=== PATIENT | female | born 1945 | race Caucasian/White ===

== ENCOUNTER 2020-01-03 11:01 | Emergency (ER) | payer MEDICARE, SELFPAY ==
--- NOTE | ~2020-01-03 | XR_ITS ---
EXAMINATION: XR chest 2V DATE: 01/03/2020 12:03 INDICATION: Cough. TECHNIQUE: Frontal and lateral views of the chest were obtained. COMPARISON: None. FINDINGS: There is mild atelectasis in left lower lung zone. No pleural effusion or pneumothorax. The heart size is normal. IMPRESSION: 1. Mild atelectasis in left lower lung zone. Reviewed, dictated and finalized at location A. IERIER
[2020-01-03 11:14] VITALS: BP 132/64; PULSE 76; RESP 16; TEMP 36.6; O2SAT 97
--- NOTE | 2020-01-03 11:49 | ED.URI ---
HPI - URI/Sore Throat General Chief Complaint: Upper Respiratory Infection Stated Complaint: cough/no voice/drainage Time Seen by Provider: 01/03/20 11:49 Source: patient and RN notes reviewed Mode of arrival: ambulatory Limitations: no limitations History of Present Illness HPI Narrative: 74 year old female presents with concern for cough. She reports she started coughing on New 's [place], went to her primary care provider who gave her a Z-Bhupinder and prednisone. She reports improvement without resolution. She reports symptoms have persisted since then with periods of improvement without resolution. She reports in the last several days coughing has gotten worse, her voice is hoarse from coughing. She denies rhinorrhea or nasal congestion. Reports postnasal drainage. Denies sore throat or ear pain. Denies fever, chills, sweats. MD elicited complaint: cough Related Data Allergies Allergy/AdvReac Type Severity Reaction Status Date / Time Penicillins Allergy Hives Verified 01/03/20 11:12 Review of Systems Review of Systems: Narrative: CONSTITUTIONAL: Denies malaise, chills, sweats, or fever. EYES: Denies visual changes, redness, or discharge. ENT: Denies rhinorrhea, congestion, sinus pain, otalgia and sore throat. Reports postnasal drainage CARDIOVASCULAR: Denies chest pain, palpitations, or edema. RESPIRATORY: Reports persistent cough, hoarse voice. Denies dyspnea. GASTROINTESTINAL: Denies abdominal pain, nausea, vomiting, diarrhea SKIN: Denies rash or itching. MUSCULOSKELETAL: Denies myalgia. NEUROLOGIC: Reports occasional headache. All systems reviewed & are unremarkable except as noted in HPI and below PMFSH Comments At time of signature, agree with nursing past medical, surgical, social and family history. There is no relevant family history pertinent to the presenting complaint Exam Narrative: Exam Narrative: GENERAL: Well-appearing, well-nourished, and in no acute distress. HEAD: Normocephalic EYES: PERRLA, conjunctivae clear ENT: Nares clear, turbinates erythematous, clear discharge. Mucous membranes moist. TM pearly cardona with dull light reflex bilaterally; no tragal tenderness. Oropharynx not erythematous without lesions. Tonsils not enlarged and without exudate, no drooling, no trismus. Hoarse voice NECK: Supple. No lymphadenopathy CHEST: Clear to auscultation, breath sounds equal. No wheezing, rhonchi, rales, or stridor. No respiratory distress, speaks in full sentences. HEART: Regular rate and rhythm. No murmur heard. Normal peripheral pulses. SKIN: Warm, dry, no rash. NEURO: Alert and oriented x3. PSYCH: Normal mood and affect Course Course Emergency Course: Discussed with patient potential causes of chronic cough. Advised patient to follow-up with her primary care provider for reevaluation. Patient is aware of diagnosis, understands and agrees to treatment plan. Anticipatory guidance given. Patient agrees to follow-up as directed and is aware of reasons to seek care at the emergency department. Portions of this record may have been created with voice recognition software Vital Signs Vital signs: Vital Signs Temperature 97.9 F 01/03/20 11:14 Pulse Rate 76 01/03/20 11:14 Respiratory Rate 16 01/03/20 11:14 Blood Pressure 132/64 01/03/20 11:14 Pulse Oximetry 97 01/03/20 11:14 Temperature 97.9 F 01/03/20 11:14 Pulse Rate 76 01/03/20 11:14 Respiratory Rate 16 01/03/20 11:14 Blood Pressure 132/64 01/03/20 11:14 Pulse Oximetry 97 01/03/20 11:14 Reviewed. Patient has current diagnosis of hypertension MDM - URI/Sore Throat MDM Narrative Medical decision making narrative: Differential diagnosis considered: Chronic bronchitis, COPD, emphysema, strep pharyngitis, allergic rhinitis, upper respiratory tract infection, sinusitis, rhinosinusitis, nasopharyngitis. viral pharyngitis, otitis media, otitis externa, pneumonia, bronchitis, viral cough syndrome, viral syndrome, and influenza.
== END 2020-01-03 12:31 | disposition home or self-care (01) ==
PROVIDERS: Emergency Provider Nurse Practitioner; PCP Internal Medicine
DX: R05 Cough (principal); R49.0 Dysphonia; J98.11 Atelectasis; I10 Essential (primary) hypertension; J45.909 Unspecified asthma, uncomplicated
CPT/HCPCS: 71046; 99203; G0463

== ENCOUNTER 2020-07-13 10:53 | Emergency (ER) | payer MEDICARE, SELFPAY ==
--- NOTE | ~2020-07-13 | XR_ITS ---
XR chest 2V DATE: 07/13/2020 11:14 INDICATION: Cough and congestion TECHNIQUE: PA and lateral views COMPARISON: 01/03/2020 PA and lateral chest FINDINGS: Normal heart size. No hilar or mediastinal enlargement. There is minimal discoid atelectasis and/or scarring at the lung bases. No pulmonary infiltrate or co nsolidation, pleural effusion or pulmonary vascular congestion or pneumothorax is detected. Moderate osteopenia. There is degenerative spurring of the thoracic and lumbar spine. IMPRESSION: Minimal discoid atelectasis or scarring at the lung bases Reviewed, dictated and finalized at location A.
--- NOTE | ~2020-07-13 | XR_ITS ---
EXAMINATION: XR sinus <3V INDICATION: Cough and sinus congestion TECHNIQUE: Three views of the paranasal sinuses are obtained. COMPARISON: None available FINDINGS: The left frontal sinuses hypoplastic relative to the right. No definite sinus opacification is identified. No facial fracture is present. Moderate cervical spondylosis is noted. IMPRESSION: 1. No acute abnormality of the sinuses is detected although sensitivity of radiographs is low. If the re is high clinical suspicion for sinus disease, would recommend sinus CT. Reviewed, dictated and finalized at location B. IMPRESSION: 1. No acute abnormality of the sinuses is detected although sensitivity of radi ographs is low. If there is high clinical suspicion for sinus disease, would re commend sinus CT.
[2020-07-13 11:03] VITALS: BP 156/65; PULSE 84; RESP 16; TEMP 36.2; O2SAT 99
--- NOTE | 2020-07-13 11:20 | ED.URI ---
HPI - URI/Sore Throat General Chief Complaint: Upper Respiratory Infection Stated Complaint: cough/sinus congestion/hoarse/drainage Source: patient and RN notes reviewed Limitations: no limitations History of Present Illness HPI Narrative: The patient, a non-smoker/occ drinker with RAD, presents with congestion and cough. Patient states she is compliant with most of her meds, except beta agonist. She has 1 month recurrence of somewhat yearly history of nasal congestion, cough, sneezing, and occasional wheezing. No fever measured, loss of taste or smell, sputum changes, chest pain, shortness of breath , calf pain/edema. Symptoms are mild unrelieved with a course of Levaquin mid June and her other meds [Singulair, cough syrups, etc.], she hesitates to use the beta agonist because of the way they make her feel. Related Data Home Medications Medication Instructions Recorded Confirmed albuterol sulfate [ProAir HFA] INHALATION 07/13/20 escitalopram oxalate mg 07/13/20 hydrochlorothiazide 07/13/20 losartan 07/13/20 metoprolol succinate PO 07/13/20 montelukast mg 07/13/20 Allergies Allergy/AdvReac Type Severity Reaction Status Date / Time Penicillins Allergy Hives Verified 01/03/20 11:12 Review of Systems Review of Systems: Narrative: General/Constitutional: No weight loss,fever Eyes: N0: Redness,discharge Ears/Nose/Throat: No: Epistaxis,ear discharge Respiratory: Denies: Hemoptysis Gastrointestinal: No Vomiting, Bleeding-rectal Skin: No Lumps, eruption Neurologic: No Focal Weakness,Sz Hematologic: Denies: Petechiae/Purpura Psychiatric: No: Suicida ideationl All Other Systems: Reviewed and Negative PMFSH Comments At time of signature, agree with nursing past medical, surgical, social and family history. There is no relevant family history pertinent to the presenting complaint Exam Narrative: Exam Narrative: General Appearance: Well appearing, Well nourished EYE: PERRLA, Conjunctiva clear Ears: Auditory canal normal, TM normal Nose: Rhinorrhea, Mucousal erythema Mouth/Throat: MM moist, Uvula midline, Pharyngeal erythema Neck: Supple, No adenopathy Respiratory: No respiratory distress, Breath sounds equal, Clear to auscultation, except with rare basilar wheeze Cardiovascular: RRR, No JVD Musculoskeletal: Non tender, Normal strength Skin: Warm, Dry Neurological: A&O x3, CN II-XII intact Psychiatric: Normal mood, Normal affect Course Course Emergency Course: Films visualized, interpreted by radiologist, agree, normal see report Vital Signs Vital signs: Vital Signs Temperature 97.1 F L 07/13/20 11:03 Pulse Rate 84 07/13/20 11:03 Respiratory Rate 16 07/13/20 11:03 Blood Pressure 156/65 H 07/13/20 11:03 Pulse Oximetry 99 07/13/20 11:03 Temperature 97.1 F L 07/13/20 11:03 Pulse Rate 84 07/13/20 11:03 Respiratory Rate 16 07/13/20 11:03 Blood Pressure 156/65 H 07/13/20 11:03 Pulse Oximetry 99 07/13/20 11:03 Discharge Plan Discharge Clinical Impression: Wheezing-associated respiratory infection (WARI), Rhinosinusitis Patient Disposition: Home, Self-Care Condition: Stable Instructions: Antibiotic Form, Asthma (ED) Prescriptions: New prednisone 20 mg tablet 60 mg PO DAILY Qty: 15 RF: 0 ipratropium bromide 0.02 % solution 2.5 ml INHALATION Q6H PRN (Reason: shortness of breath or wheezing) Qty: 12.5 RF: 5 benzonatate [Tessalon Perles] 100 mg capsule 100 mg PO TID Qty: 20 RF: 1 cefdinir 300 mg capsule 300 mg PO Q12H Qty: 14 RF: 0 codeine-guaifenesin 10-100 mg/5 mL liquid 7.5 ml PO BID PRN (Reason: cough) Qty: 118 RF: 0 No Action metoprolol succinate 50 mg tablet extended release 24 hr PO RF: 0 montelukast 10 mg tablet RF: 0 hydrochlorothiazide 25 mg tablet RF: 0 albuterol sulfate [ProAir HFA] 90 mcg/actuation HFA aerosol inhaler INHALATION RF: 0 losartan 100 mg tab
== END 2020-07-13 12:20 | disposition home or self-care (01) ==
PROVIDERS: Emergency Provider Emergency Medicine; PCP Internal Medicine
DX: J45.909 Unspecified asthma, uncomplicated (principal); J31.0 Chronic rhinitis; J32.9 Chronic sinusitis, unspecified; I10 Essential (primary) hypertension
CPT/HCPCS: 70210; 71046; 87635; 99213; C9803; G0463; U0003

== ENCOUNTER → 2020-07-13 11:51 | Outpatient (NON) | payer MEDICARE, SELFPAY ==
[2020-07-14 13:41] LABS: SARS-CoV-2 RNA PCR Negative
== END ==
PROVIDERS: PCP Internal Medicine; Visit Provider Emergency Medicine
DX: R05 Cough (principal); Z20.828 Contact with and (suspected) exposure to other viral communicable diseases
CPT/HCPCS: 87635; C9803; U0003

== ENCOUNTER 2022-01-23 11:43 | Emergency (ER) | payer MEDICARE, SELFPAY ==
--- NOTE | ~2022-01-23 | XR_ITS ---
EXAMINATION: XR chest 2V 01/23/2022 12:37 INDICATION: Cough and congestion. Hypertension. Asthma. PROCEDURE: 2 view chest COMPARISON: 07/13/2020 FINDINGS: The lungs are clear. The cardiomediastinal silhouette is within normal limits. There are no pleural effusions. There is no pneumothorax suspected. There are calcified nodules in the left l ower. There is chronic left basilar atelectasis/scar. IMPRESSION: 1: NO ACUTE CARDIOPULMONARY DISEASE. Reviewed, dictated and finalized at location A.
[2022-01-23 11:52] VITALS: BP 148/78; PULSE 69; RESP 16; TEMP 36.4; O2SAT 99
[2022-01-23 12:02] VITALS: BP 148/78; PULSE 69; RESP 16; TEMP 36.4; O2SAT 99
--- NOTE | 2022-01-23 12:52 | ED.URI ---
HPI - URI/Sore Throat General Chief Complaint: Upper Respiratory Infection Stated Complaint: COLD/COUGH Time Seen by Provider: 01/23/22 12:20 Source: patient Mode of arrival: ambulatory Limitations: no limitations History of Present Illness HPI Narrative: Ms. Morgan is a 76-year-old female patient presenting to the clinic today with complaints of cough and cold symptoms for 1-1/2 weeks. She reports she has nasal congestion, sinus pressure/headache, productive cough with green phlegm, and some dyspnea on exertion. She reports her dyspnea about a 7 or 8 out of 10 with movement. Has a history of asthma. She denies any fever or chills. Denies any known exposure to anyone with Covid or influenza. Is currently taking cefdinir that her PCP gave her for a sinus infection. MD elicited complaint: cough, rhinorrhea, nasal congestion and sinus pain Related Data Home Medications Medication Instructions Recorded Confirmed albuterol sulfate [ProAir HFA] INHALATION 07/13/20 escitalopram oxalate mg 07/13/20 hydrochlorothiazide 07/13/20 losartan 07/13/20 metoprolol succinate PO 07/13/20 montelukast mg 07/13/20 Allergies Allergy/AdvReac Type Severity Reaction Status Date / Time Penicillins Allergy Hives Verified 01/03/20 11:12 Review of Systems Review of Systems: Pertinent positives per HPI. Patient denies any fever, chills, rash, visual changes, dizziness, chest pain, palpitations, nausea, vomiting, diarrhea, constipation, abdominal pain, or any urinary issues. PMFSH Comments At the time of my signature, I reviewed and agree with the nursing past medical, surgical, social, and family history. There is no relevant family history pertinent to the patient complaint. Exam Narrative: General: Well-developed, obese, in no apparent distress Head: Normocephalic, atraumatic Eyes: Pupils equally round and reactive to light bilaterally, EOM intact, sclera and conjunctive clear, no discharge, lids normal Ears: TMs intact and clear, ear canals clear, no drainage, grossly hearing normal. Nose: Nares patent, no discharge, moderate inflammation to the anterior and posterior turbinates, sinus tenderness over the maxillary and frontal sinuses. Mouth: Oral pharynx without lesions or masses, good dentition, MMM. Postnasal drip Neck: Supple, trachea midline, no enlargement of anterior or posterior cervical nodes, no thyroid masses or goiter palpable. Cardio: Regular rate and rhythm, s1 and s2 normal, no murmur appreciated. Resp: Lung sounds diminished in the lower and middle lobes otherwise clear, no rhonchi, rales, wheezing or rubs Course Course Emergency Course: Portions of this record may have been created with voice recognition software. Level of Care: Express Care Visit Vital Signs Vital signs: Vital Signs Temperature 36.4 C L 01/23/22 11:52 Pulse Rate 69 01/23/22 11:52 Respiratory Rate 16 01/23/22 11:52 Blood Pressure 148/78 H 01/23/22 11:52 Pulse Oximetry 99 01/23/22 11:52 Temperature 36.4 C L 01/23/22 12:02 Pulse Rate 69 01/23/22 12:02 Respiratory Rate 16 01/23/22 12:02 Blood Pressure 148/78 H 01/23/22 12:02 Pulse Oximetry 99 01/23/22 12:02 Vital signs reviewed MDM - URI/Sore Throat MDM Narrative Medical decision making narrative: Upon assessment patient is resting comfortably on the exam table. She is afebrile. Complains of a productive cough with green phlegm for 1.5 weeks. Has been taking cefdinir and this has improved some but still has quite a bit of sinus pressure and nasal discharge. Reports that she has become more so short of breath with exertion. She has a history of asthma and has been using inhaler without much relief. She had difficulty sleeping last night due to the coughing. Will get chest x-ray to rule out pneumonia-chest x-ray is negative in the clinic for any pneumonia. Will treat for acute sinusitis/asthma exacerbation. Differential Diagnosis Differential diagnosis
== END 2022-01-23 13:13 | disposition home or self-care (01) ==
PROVIDERS: Emergency Provider Nurse Practitioner Family; PCP Internal Medicine
DX: J01.90 Acute sinusitis, unspecified (principal); J45.21 Mild intermittent asthma with (acute) exacerbation; I10 Essential (primary) hypertension
CPT/HCPCS: 71046; 99213; G0463